=== PATIENT | male | born 1990 | race African-American/Black ===

== ENCOUNTER 2017-01-07 21:21 | Emergency (ER) | payer SELFPAY ==
[~2017-01-07 21:21] MED LIST: Lidocaine 1% 20 ML MDV ONE
[2017-01-07] MEDS ORDERED: cefTRIAXone\\ROCEPHIN 1 GM VIAL ONE (22:15)
[2017-01-07] MEDS ORDERED: Azithromycin 250 MG TAB ONE (22:15)
[2017-01-07] MEDS ORDERED: Doxycycline Hyclate 100 MG TAB ONE (22:15)
[2017-01-07] MEDS ORDERED: Naproxen 500 MG TAB ONE (22:15)
[2017-01-07] MEDS ORDERED: Ondansetron ODT 4 MG TAB ONE (22:15)
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
== END 2017-01-07 22:42 | disposition home or self-care (01) ==
LOC: MADERS 21:21
DX: S30.0XXA Contusion of lower back and pelvis, initial encounter (principal); N34.1 Nonspecific urethritis; X58.XXXA Exposure to other specified factors, initial encounter
CPT/HCPCS: 72100; 96372; J0696; J2001; Q0162

== ENCOUNTER 2017-01-30 03:24 | Emergency (ER) | payer OTHER, SELFPAY ==
[2017-01-30] MEDS ORDERED: traMADol HCl 50 MG TAB ONE (03:51)
[2017-01-30 03:59] LABS: #Basophils 0.1 thou/uL (0.0-0.2); #Eosinphils 0.2 thou/uL (0.0-0.7); #Lymphocytes 2.7 thou/uL (1.20-3.40); #Monocytes 0.7 thou/uL (0.11-0.59); #Neutrophils 8.4 thou/uL (1.40-6.50); %Basophils 0.9 % (0.0-1.0); %Eosinophils 1.6 % (0.0-10.0); %Lymphocytes 22.4 % (21.0-51.0); %Monocytes 5.9 % (0.0-10.0); %Neutrophils 69.2 % (42.0-75.0); Hemoglobin 13.4 g/dL (14.0-18.0); Mean Corpuscular HGB CONC 34.7 g/dL (32.0-36.0); Mean Corpuscular Volume 92.1 fl (80.0-94.0); Mean Platelet Volume 8.1 fL (7.4-10.4); Platelet Count 217 thou/uL (130-400); RBC Distribution Width 10.9 % (11.5-14.5); Red Blood Cell (RBC) Count 4.18 mill/uL (4.70-6.10); White Blood Cell (WBC) Count 12.2 thou/uL (4.8-10.8)
[2017-01-30 04:16] LABS: ALT (SGPT) 37 U/L (0-55); AST (SGOT) 66 U/L (5-34); Albumin 4.4 g/dL (3.5-5.0); Alkaline Phosphatase 48 U/L (40-150); Anion Gap 16 mmol/L (10-20); BUN (Urea Nitrogen) 11 mg/dL (8.9-20.6); Bilirubin, Total 0.3 mg/dL (0.2-1.2); Calc. Creatinine Clearance 0 mL/min (70-130); Calcium 8.9 mg/dL (7.8-10.44); Carbon Dioxide 25 mmol/L (22-29); Chloride 105 mmol/L (98-107); Estimated GFR-MDRD Greater than 90; Globulin 2.6 g/dL (2.4-3.5); Glucose 96 mg/dL (70-105); Potassium 3.5 mmol/L (3.5-5.1); Sodium 142 mmol/L (136-145)
[2017-01-30] MEDS ORDERED: Triple Antibiotic Oint 1 GM Packet ONE (04:31)
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
--- NOTE | 2017-01-30 08:11 | RAD ---
EXAM: LEFT SHOULDER 3 VIEWS: HISTORY: Pain. COMPARISON: None. FINDINGS: Glenohumeral joint space is preserved. No dislocation. No fracture. IMPRESSION: No fracture or dislocation. POS: [facility]
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
== END 2017-01-30 06:53 | disposition home or self-care (01) ==
LOC: MADERS 03:24
DX: S80.02XA Contusion of left knee, initial encounter (principal); S80.01XA Contusion of right knee, initial encounter; S50.02XA Contusion of left elbow, initial encounter; S00.83XA Contusion of other part of head, initial encounter; S40.012A Contusion of left shoulder, initial encounter; V89.2XXA Person injured in unspecified motor-vehicle accident, traffic, initial encounter
CPT/HCPCS: 36415; 70450; 71250; 72125; 74150; 80053; 85025